=== PATIENT | male | born 1995 | race Caucasian/White ===

== ENCOUNTER 2021-03-24 12:02 | Emergency (ER) | payer BC ==
[~2021-03-24] VITALS: Ht 185.4 cm; Wt 81.6 kg
[2021-03-24 13:01] LABS: BASOPHILS % (AUTO) 0 % (0-1); EOSINOPHILS % (AUTO) 1 % (1-7); LYMPHOCYTES % (AUTO) 25 % (22-44); MEAN CORPUSCULAR HEMOGLOBIN 30.6 pg (27.5-34.5); MEAN CORPUSCULAR HGB CONC 34.8 g/dL (33.2-36.2); MEAN PLATELET VOLUME 8.4 fL (7.4-10.4); MONOCYTES % (AUTO) 20 % (2-9); NEUTROPHILS % (AUTO) 54 % (42-75); PLATELET COUNT 143 x10^3/uL (130-400); RED BLOOD COUNT 5.03 x10^6/uL (4.38-5.82); RED CELL DISTRIBUTION WIDTH 12.9 % (9.4-14.8)
[2021-03-24 13:09] LABS: ALANINE AMINOTRANSFERASE 23 U/L (12-78); ALBUMIN 3.7 g/dL (3.4-5.0); ANION GAP 5 mmol/L (5-15); CHLORIDE 104 mmol/L (98-107); CREATININE 1.07 mg/dL (0.7-1.3)
[2021-03-24 13:11] LABS: ALKALINE PHOSPHATASE 60 U/L (45-117); BILIRUBIN,TOTAL 0.9 mg/dL (0.2-1.0); TOTAL PROTEIN 7.2 g/dL (6.4-8.2)
--- NOTE | 2021-03-24 15:23 | NUR ---
[employer]: PT TO ROOM FROM GRAHAM WATSON
--- NOTE | 2021-03-24 16:00 | NUR ---
PT STATES HE HAS BRIGHT BLOOD IN STOOL. SYMPTOMS STARTED TUESDAY AM. PT STATES HE FEELS CONSTIPATED. FEELS LIKE HE HAS TO GO, BUT CANT. HAD DIARRHEA ON TUESDAY. DENIES N/V. DENIES ABX USE. LAST BM THIS AM.
[2021-03-24 18:01] VITALS: BP 125/81
== END 2021-03-24 18:01 | disposition home or self-care (01) ==
LOC: ED 17:15
DX: K92.1 Melena (principal); K59.00 Constipation, unspecified
CPT/HCPCS: 36415; 74021; 80053; 85025; 99284